=== PATIENT | female | born 1940 | race Caucasian/White ===

== ENCOUNTER 2018-01-18 11:03 | Outpatient (CLI) | payer MEDICARE, OTHER ==
[~2018-01-18] VITALS: Ht 160 cm; Wt 75.0 kg
--- NOTE | ~2018-01-18 | HEMODYNAMI ---
PATIENT:ROBIN MONTOYA MEDICAL RECORD: [id number] : 38 LOCATION:[facility] ADMISSION DATE: 01/18/18 Generatedon:01/18/201813:57 Patient name: ROBIN MONTOYA Patient #: [id number] SSN: : [id number] Date of study: 01/18/2018 Page: Of Hemodynamic Procedure Report Patient Data Patient Demographics Procedure consent was obtained First Name: ROBIN Gender: Female Last Name: JAN : 1940 Middle Initial: E Age: 77 year(s) Patient #: [id number] Race: Unknown Additional ID: [id number] Contact details Address: [address] [place] [address] State: [place] City: [place] Zip code: [address] Past Medical History Allergies Allergen Reaction Date Comments Reported Other allergy 01/18/2018 CARDIZEM, CIPRO, DARVOCET, HYDROCODONE, PCN, PERCOCET, TRAMADOL Admission Admission Data Admission Date: 01/18/2018 Admission Time: 11:03 Lab Results Lab Result Date: 01/18/2018 Lab Result Time: 0:00 Biochemistry Name Units Result Min Max BUN mg/dl 27 --(----)-* 7 18 Creatinine mg/dl 1.1 --(--*-)-- 0.6 1.3 CBC Name Units Result Min Max Hemoglobin g/dl 12.6 -*(----)-- 13.5 17.5 Procedure Procedure Types Cath Procedure Diagnostic Procedure LHC LHC w/Coronaries w/Grafts Procedure Description Procedure Date Procedure Date: 01/18/2018 Procedure Start Time: 13:31 Procedure End Time: 13:56 Procedure Staff Name Function Mendez Smith MD Performing Physician Kary Londono RT Monitor Colby Kwong RT Scrub Moses Werner RN Nurse Procedure Data Cath Procedure Fluoroscopy Diagnostic fluoroscopy Total fluoroscopy Time: 3.6 time: 3.6 min min Diagnostic fluoroscopy Total fluoroscopy dose: 755 dose: 755 mGy mGy Contrast Material Contrast Material Type Amount (ml) Isovue 370 88 Entry Location Entry Primary Successful Side Size Upsize Upsize Entry Closure Succes sful Closure Location (Fr) 1 (Fr) 2 (Fr) Remarks Device Remarks Femoral Right 5 Fr Exoseal artery Estimated blood loss: 5 ml Diagnostic catheters Device Type Used For End Catheter Placement MULTIPACK JL 4.0 5Fr Procedure catheter DIAGNOSTIC AR MOD 5Fr Procedure Catheter ([id number]) MULTIPACK Pigtail 5 Fr Procedure catheter Procedure Complications No complications Procedure Medications Medication Administration Route Dosage Lidocaine 2% added to field 20 Hemodynamics Rest Heart Rate: 54 (bpm) Pressure Samples Time Site Value (mmHg) Purpose Heart Use Rate(bpm) 13:46 LV 147/7,17 Snapshot 54 13:47 AO 122/56(79) Pullback 52 13:47 LV 173/5,17 Pullback 52 Gradients Valve Time Site 1 Site 2 Mean SEP/DFP Peak To Heart Use (mmHg) (sec/min) Peak Rate (mmHg) (bpm) Aortic 13:47 LV AO 17 16 51 52 173/5,17 122/56(79) Calculations Valve P-P Mean Valve Index Valve Source Name Gradient Area Flow (cm2) Aortic 51 17 51 17 Snapshots Pre Cath Intra NCS Post Cath Vital Signs Time Heart Resp SPO2 etCO2 NIBP Rhythm Pain Sedation Rate (ipm) (%) (mmHg) (mmHg) Status Level (bpm) 13:20:32 51 19 96 0 101/53(54) NSR 0 (11) 10(A) , No pain 13:25:54 51 19 94 0 107/48(83) NSR 0 (11) 10(A) , No pain 13:30:37 50 19 96 0 113/55(79) NSR 0 (11) 10(A) , No pain 13:35:23 53 18 97 0 117/53(89) NSR 0 (11) 10(A) , No pain 13:40:04 54 17 96 0 117/55(82) NSR 0 (11) 10(A) , No pain 13:44:51 51 17 97 0 111/52(90) NSR 0 (11) 10(A) , No pain 13:49:31 52 17 96 0 111/54(86) NSR 0 (11) 10(A) , No pain 13:54:16 55 18 97 0 124/55(94) NSR 0 (11) 10(A) , No pain Medications Time Medication Route Dose Verified Delivered Reason Notes Effective ness by by 13:25:57 Lidocaine added 20ml Mendez Mendez for local 2% to vial Luis Smith MD anesthetic field Procedure Log Time Note 13:03:36 Signed procedure consent form obtained from patient. 13:03:45 Colby Kwong RT(R) sent for patient. Start room use. 13:03:49 Plan of Care:Hemodynamics will remain stable., Cardiac rhythm will remain stable., Comfort level will be maintained., Respiratory function will remain adequate., Patient/ family verbilizes understanding of procedure., Procedure tolerated without complication., Recovers from procedure without complications.. 13:03:53 Time tracking: Regular hours (M-F 7:00 - 5:00) 13:04:21 H&P Date Dictated: 01/16/2018 Within 30 days and on chart., H&P Addendum completed by physician on day of procedure. (MUST COMPLETE FOR ALL OUTPATIENTS). 13:05:50 Lab Result : Creatinine 1.1 mg/dl 13:05:50 Lab Result : BUN 27 mg/dl 13:05:50 Lab Result : Hemoglobin 12.6 g/dl 13:07:09 Patient allergic to Other allergyCARDIZEM, CIPRO, DARVOCET, HYDROCODONE, PCN, PERCOCET, TRAMADOL 13:19:24 Patient received from Pre/Post Procedure Room to CCL 1 Alert and oriented. Tansferred to table in Supine position. 13:19:25 Warm blankets applied, and madhu hugger turned on for patient comfort. 13:19:25 Correct patient and procedure confirmed by team. 13:19:26 ECG and BP/O2 sat monitors applied to patient. 13:19:29 Vital chart was started 13:19:33 Rhythm: sinus bradycardia 13:19:34 Full Disclosure recording started 13:19:35 Pre-procedure instructions explained to patient. 13:19:35 Pre-op teaching completed and patient verbalized understanding. 13:19:37 Family in patients room. 13:19:39 Patient NPO since Midnight. 13:19:40 Is the patient allergic to Iodine/contrast media? No. 13:19:41 Is patient on blood thinner?Yes 13:19:44 ACC The patient was administered the following blood thiners within the last 24 hours: ACCPlavix 13:19:46 Patient diabetic? No. 13:19:50 Previous problem with sedation/anesthesia? No ? 13:19:50 Snore? Yes 13:19:51 Sleep apnea? Yes 13:19:53 Deviated septum? No 13:19:54 Opens mouth fully? Yes 13:19:56 Sticks out tongue? Yes 13:19:58 Airway obstruction? No ? 13:20:03 Dentures? No ? 13:20:05 Pre procedure: right dorsailis pedis pulse 1+ Palpable, but thready & weak; easily obliterated 13:20:09 Patient pain scale 0/10 ?. 13:20:15 IV patent on arrival in left wrist with 0.9% NaCl at [facility]. 13:20:18 Pt requests NO SEDATION. 13:20:18 Lab results completed and on chart. 13:20:21 Right groin area was prepped with chlora-prep and draped in sterile fashion 13:20:22 Alarms reviewed by R. N. 13:20:22 Sharps counted by scrub and verified by R.N. 13:20:23 --------ALL STOP TIME OUT------ 13:20:24 Final Timeout: patient, procedure, and site verified with staff and physician. All members of the team are in agreement. 13:20:25 Right groin site verified by team. 13:20:31 Physical assessment completed. ASA score P 1 - A normal healthy patient as per Mendez Smith MD. 13:20:33 Physical assessment completed. ASA score P 2 - A patient with mild systemic disease as per Mendez Smith MD. 13:20:36 Sedation plan: IV Moderate Sedation Medication:Versed, Fentanyl 13:21:10 Use device set Femoral Dx 13:21:11 ACIST Syringe (56317) opened to sterile field. 13:21:12 Bag Decanter (2001S) opened to sterile field. 13:21:14 ACIST Hand Control (81822) opened to sterile field. 13:21:14 ACIST Manifold (26222) opened to sterile field. 13:21:15 Tegaderm 4 x 4 (1626W) opened to sterile field. 13:21:16 Medline Cath Pack ([id number]) opened to sterile field. 13:21:17 DIAGNOSTIC WIRE .035 260cm J wire (845498) opened to sterile field. 13:21:18 DIAGNOSTIC Multipack 5Fr catheter set ([id number]) opened to sterile field. 13:21:19 SHEATH Prelude 5Fr 0.035 (RPM-8Y-65-035) opened to sterile field. 13:25:57 Lidocaine 2% 20ml vial added to field was administered by Mendez Smith MD; for local anesthetic; 13:31:12 Procedure started. 13:31:31 Local anesthetic to right femoral artery with Lidocaine 2% by Mendez Smith MD.INITIAL ACCESS ONLY 13:33:35 Zero performed for pressure channel P1 13:33:40 Zero performed for pressure channel P1 13:33:45 Zero performed for pressure channel P1 13:34:01 A 5 Fr sheath was inserted into the Right Femoral artery 13:35:23 A MULTIPACK JL 4.0 5Fr catheter was advanced over the wire and used for Procedure. 13:37:39 LCA angiography performed. 13:38:42 Catheter exchanged over wire. 13:39:47 A DIAGNOSTIC AR MOD 5Fr Catheter ([id number]) was advanced over the wire and used for Procedure. 13:40:22 RCA angiography performed. 13:45:11 SVG to Circ occluded. 13:45:25 SVG to RPDA occluded. 13:45:26 SVG to Diag occluded. 13:45:43 REYES ANGIO PERFORMED. ATRETIC 13:45:44 Catheter exchanged over wire. 13:46:04 A MULTIPACK Pigtail 5 Fr catheter was advanced over the wire and used for Procedure. 13:46:08 LV gram done using OLMEDO 13:46:10 Injector settings: Ml/sec: 10, Volume: 20, 13:46:28 LV hemodynamics recorded. 13:46:47 EF : 55 % 13:49:27 Catheter removed. 13:49:30 EXOSEAL 5Fr (EX500) opened to sterile field. 13:52:18 Sheath removed intact; hemostasis achieved with Exoseal to the Right Femoral artery. 13:52:27 Procedure ended.(Physican Out) 13:52:43 Fluoroscopy time 03.60 minutes. 13:52:47 Fluoroscopy dose: 755 mGy 13:52:47 Flurop Dose total: 755 13:52:50 Contrast amount:Isovue 370 88ml. 13:52:52 Sharps counted by scrub and verified by R.N. 13:52:57 Insertion/operative site no bleeding no hematoma. 13:53:01 Post-op/insertion site Right Femoral artery dressed using a 4 x 4 and Tegaderm. 13:53:06 Post right femoral artery:stable, soft, clean and dry 13:53:45 Post Procedure Pulses reassessed and unchanged 13:53:47 Post procedure: right dorsailis pedis pulse 1+ Palpable, but thready & weak; easily obliterated. 13:53:52 Post-procedure physical assessment completed. ASA score P 2 - A patient with mild systemic disease as per Mendez Smith MD. 13:53:57 Post procedure rhythm: unchanged. 13:54:01 Estimated blood loss: 5 ml 13:54:03 Post procedure instruction explained to patient.Patient verbalizes understanding. 13:54:03 Patient needs reinforcement of post procedure teaching. 13:56:25 Procedure and supply charges have been captured, reviewed, submitted and are correct. 13:56:27 Procedure Complication : No complications 13:56:30 Vital chart was stopped 13:56:31 See physician's report for complete and final results. 13:56:33 Report given to Pre/Post Procedure Room. 13:56:37 Patient transfered to Pre/Post Procedure Room with Bed. 13:56:38 Procedure ended. 13:56:38 Full Disclosure recording stopped 13:56:43 End room use (Document Last) Device Usage Item Name Manufacture Quantity Catalog Number Hospital Part Current M inimal Lot# / Charge Number Stock Stock Serial# Code ACIST Syringe Acist 1 68263 471021 [id number] [id number] 2 0 (21736) [employer] Bag Decanter Microtek 1 2001S 065468 92623 617390 5 (2001S) [employer] ACIST Hand Acist 1 30354 149648 826213 211412 5 Control (17534) [employer] ACIST Manifold Acist 1 52187 040806 795721 958663 5 (69530) [employer] Tegaderm 4 x 4 3M 1 1626W 673628 144154 581742 5 (1626W) Medline Cath Cardinal 1 [id number] 131508 83198 169646 5 [facility] ([id number]) DIAGNOSTIC WIRE [facility] 1 450372 154948 129196 041761 3 0 .035 260cm J wire (993112) DIAGNOSTIC Cardinal 1 QV5056 604060 17110 476983 3 0 Multipack 5Fr Health catheter set ([id number]) SHEATH Prelude Merit 1 [id number] 545302 636357 224669 5 5Fr 0.035 Medical ([id number]-9R-83-035) MULTIPACK JL Cardinal 1 [id number] 5 4.0 5Fr Health catheter DIAGNOSTIC AR Cardinal 1 [id number] 953276 732837 980892 1 5 MOD 5Fr Health Catheter ([id number]) MULTIPACK Cardinal 1 217606 5 Pigtail 5 Fr Health catheter EXOSEAL 5Fr Cardinal 1 EX500 688954 514120 071576 1 0 (EX500) Health Signature Audit [place] Stage Time Signature Unsigned Intra-Procedure 01/18/2018 Kary Londono 1:57:52 PM RT(R) Signatures Monitor : Kary Londono Signature : RT Date : Time : [address] [address]
[~2018-01-18 11:03] MED LIST: ATROVENT 0.06%15 ML NS; BAYER CHEWABLE81 MG PO; BUTALB-APAP-CA1 EACH PO; CATAFLAM50 MG PO; CELEXA20 MG PO; CO Q-1030 MG PO; COLESTID1 GM PO; COZAAR100 MG PO; FISH OIL 1,0001 CA1 PO; HYDROXYZINE HCL10 MG PO; LIPITOR20 MG PO; MORPHINE SULFAT15 M4 PO; NEXIUM40 MG; NITROMIST8.5 GM SL; PLAVIX75 MG PO; SOMA350 MG PO; TENORMIN50 MG PO; ZANTAC300 MG PO
[2018-01-18] MEDS ORDERED: BIOTIN5 MG PO (11:47)
[2018-01-18] MEDS ORDERED: ISOSORBIDE MONO60 M1 PO (11:49)
[2018-01-18] MEDS ORDERED: CYMBALTA30 MG PO (11:49)
[2018-01-18] MEDS ORDERED: MAG-OX 400 MG400 MG PO (11:50)
[2018-01-18] MEDS ORDERED: RANEXA500 MG PO (11:51)
[2018-01-18] MEDS ORDERED: VITAMIN B COMPL1 TAB PO (11:52)
[2018-01-18] MEDS ORDERED: VITAMIN D31000 UNIT PO (11:53)
[2018-01-18] MEDS ORDERED: ASCORBIC ACID500 MG PO (11:53)
[2018-01-18] MEDS ORDERED: VITAMIN E400 UNI2 PO (11:53)
[2018-01-18 12:04] VITALS: BP 118/53; Ht 160 cm; Wt 75.0 kg
[2018-01-18 12:10] LABS: EOSINOPHILS 3.7 % (0-7); HEMATOCRIT 37.2 % (36.0-48.0); HEMOGLOBIN 12.6 g/dL (12-16); IMMATURE GRANULOCYTES 0.2 % (0-5); LYMPHOCYTES 34.9 % (15-50); MCH 31.2 pg (26.0-34.0); MCHC 33.9 g/dL (31.0-37.0); MCV 92.1 fL (80.0-100.0); MEAN PLATELET VOLUME 9.3 fL (7.4-10.4); MONOCYTES 11.8 % (2-11); NEUTROPHILS 48.4 % (40-80); PLATELET COUNT 178 10x3/uL (130-400); RBC 4.04 10x6/uL (4.00-5.40); RDW 13.8 % (11.5-14.5); WBC 5.1 10x3/uL (4.8-10.8)
[2018-01-18 12:31] LABS: ANION GAP 10.3 mmol/L (8-16); CALCIUM 9.3 mg/dL (8.5-10.1); CARBON DIOXIDE 28.4 mmol/L (21.0-32.0); CREATININE - SERUM 1.1 mg/dL (0.6-1.3); POTASSIUM - SERUM 5.7 mmol/L (3.5-5.1)
== END 2018-01-18 17:30 | disposition home or self-care (01) ==
LOC: D.CATH 11:03
PROVIDERS: Internal Medicine Cardiovascular Disease
DX: I25.119 Atherosclerotic heart disease of native coronary artery with unspecified angina pectoris (principal); I25.719 Atherosclerosis of autologous vein coronary artery bypass graft(s) with unspecified angina pectoris; Z01.812 Encounter for preprocedural laboratory examination

== ENCOUNTER 2018-04-07 | Emergency (ER) | payer MEDICARE, OTHER ==
[~2018-04-07] VITALS: Ht 160 cm; Wt 74.7 kg
[~2018-04-07] MED LIST changes: +ASCORBIC ACID500 MG PO; +BIOTIN5 MG PO; +CYMBALTA30 MG PO; +ISOSORBIDE MONO60 M1 PO; +MAG-OX 400 MG400 MG PO; +RANEXA500 MG PO; +VITAMIN B COMPL1 TAB PO; +VITAMIN D31000 UNIT PO; +VITAMIN E400 UNI2 PO
[2018-04-07 00:03] VITALS: Ht 160 cm; Wt 74.7 kg
[2018-04-07 00:36] LABS: HEMATOCRIT 36.1 % (36.0-48.0); HEMOGLOBIN 12.6 g/dL (12-16); LYMPHOCYTES 33.7 % (15-50); MCH 31.6 pg (26.0-34.0); MCHC 34.9 g/dL (31.0-37.0); MCV 90.5 fL (80.0-100.0); MEAN PLATELET VOLUME 8.6 fL (7.4-10.4); NEUTROPHILS 55.2 % (40-80); PLATELET COUNT 202 10x3/uL (130-400); RBC 3.99 10x6/uL (4.00-5.40); RDW 14.9 % (11.5-14.5); WBC 6.4 10x3/uL (4.8-10.8)
[2018-04-07 00:57] LABS: ALBUMIN 3.6 g/dL (3.4-5.0); ALKALINE PHOSPHATASE 75 U/L (46-116); ALT (SGPT) 30 U/L (10-68); BILIRUBIN - TOTAL 0.73 mg/dL (0.2-1.3); CALC OSMOLALITY 285 mosm/kg (275-300); CALCIUM 9.1 mg/dL (8.5-10.1); CARBON DIOXIDE 25.3 mmol/L (21.0-32.0); CHLORIDE - SERUM 105 mmol/L (98-107); CREATINE KINASE 83 UL (21-215); CREATININE - SERUM 1.1 mg/dL (0.6-1.3); GLUCOSE 110 mg/dL (74-106); POTASSIUM - SERUM 4.4 mmol/L (3.5-5.1); PROTEIN - SERUM 6.8 g/dL (6.4-8.2); SODIUM 139 mmol/L (136-145); UREA NITROGEN 33 mg/dL (7-18); eGFR NON AFRICAN AMERICAN 51 mL/min (90-120)
[2018-04-07 00:58] LABS: TROPONIN-I < 0.017 ng/mL (0.000-0.060)
[2018-04-07 02:04] VITALS: BP 117/59
[2018-04-19] MEDS ORDERED: LIDODERM 5 %1 PATCH TRANSDERM (12:10)
[2018-04-19] MEDS ORDERED: ATROVENT 0.02%2.5 ML NASAL (12:10)
[2018-04-19] MEDS ORDERED: BETAPACE 80 MG80 MG PO (12:12)
[2018-04-19] MEDS ORDERED: BUTALB-APAP-CA1 EACH PO (12:12)
[2018-04-19] MEDS ORDERED: SOMA350 MG PO (12:13)
[2018-04-19] MEDS ORDERED: HYDROXYZINE HCL10 MG PO (12:13)
[2018-04-19] MEDS ORDERED: MORPHINE IMMEDI15 MG PO (12:14)
== END 2018-04-07 01:50 | disposition home or self-care (01) ==
LOC: D.ER
PROVIDERS: Family Medicine
DX: I48.91 Unspecified atrial fibrillation (principal); Z95.1 Presence of aortocoronary bypass graft

== ENCOUNTER → 2018-04-19 11:22 | Outpatient (CLI) | payer MEDICARE, OTHER ==
[~2018-04-19] VITALS: Ht 160 cm; Wt 73.2 kg
--- NOTE | ~2018-04-19 | HEMODYNAMI ---
PATIENT:ROBIN MONTOYA MEDICAL RECORD: [id number] : 38 LOCATION:[facility] ADMISSION DATE: 04/19/18 Generatedon:04/19/201814:23 Patient name: ROBIN MONTOYA Patient #: [id number] SSN: : 1940 Date of study: 04/19/2018 Page: Of Hemodynamic Procedure Report Patient Data Patient Demographics Procedure consent was obtained First Name: ROBIN Gender: Female Last Name: JAN : 1940 Middle Initial: E Age: 77 year(s) Patient #: [id number] Race: Unknown Additional ID: [id number] Contact details [address]: [address] [place] [address] State: [place] City: [place] Zip code: [address] Past Medical History Allergies Allergen Reaction Date Comments Reported Other allergy 01/18/2018 CARDIZEM, CIPRO, DARVOCET, HYDROCODONE, PCN, PERCOCET, TRAMADOL Other allergy 04/19/2018 Cardizem, Cipro, Hydrocodone, Percocet, PCN, Tramadol. Admission Admission Data Admission Date: 04/19/2018 Admission Time: 11:22 Height (in.): 64 BSA: 1.78 (m2) Height (cm.): 162.56 BMI: 27.46 (kg/m2) Weight (lbs.): 160 Weight (kg.): 72.57 Lab Results Lab Result Date: 04/19/2018 Lab Result Time: 11:15 Biochemistry Name Units Result Min Max BUN mg/dl 15 --(--*-)-- 7 18 Creatinine mg/dl 0.8 --(-*--)-- 0.6 1.3 CBC Name Units Result Min Max Hematocrit % 40.6 -*(----)-- 42 54 Hemoglobin g/dl 14.2 --(*---)-- 13.5 17.5 Procedure Procedure Types Cath Procedure Diagnostic Procedure Sedation Charges Moderate Sedation up to 30 minutes PCI Procedure Coronary Stent Coronary Stent Initial Procedure Description Procedure Date Procedure Date: 04/19/2018 Procedure Start Time: 13:47 Procedure End Time: 14:15 Procedure Staff Name Function Mendez Smith MD Performing Physician Susanne Barrera RT Monitor Stuart Dougherty RN Nurse Nesha Garcia RT Scrub Procedure Data Cath Procedure Fluoroscopy Diagnostic fluoroscopy Total fluoroscopy Time: 7.3 time: 7.3 min min Diagnostic fluoroscopy Total fluoroscopy dose: 793 dose: 793 mGy mGy Contrast Material Contrast Material Type Amount (ml) Isovue 300 59 Entry Location Entry Primary Successful Side Size Upsize Upsize Entry Closure Succes sful Closure Location (Fr) 1 (Fr) 2 (Fr) Remarks Device Remarks Femoral Right 5 Fr Exoseal vein Femoral Right 6 Fr Exoseal artery Short Estimated blood loss: 10 ml Procedure Complications No complications Procedure Medications Medication Administration Route Dosage Heparin Flush Bag added to field 2 bags (1000units/500ml NS) 0.9% NaCl I.V. 100 ml/hr Heparin Bolus I.V. 7000 units Hemodynamics Rest BSA: 1.78 (m2) HGB: 14.2 (g/dl) O2 Consumption: Estimated: 151.11 (ml/min) O2 Co nsumption indexed: Estimated:84.89 (ml/min/m) Heart Rate: 56 (bpm) Snapshots Pre Cath Intra NCS Post Cath Vital Signs Time Heart Resp SPO2 etCO2 NIBP (mmHg) Rhythm Pain Sedation Rate (ipm) (%) (mmHg) Status Level (bpm) 13:18:04 54 17 0 121/51(100) NSR 0 (11) 10(A) , No pain 13:22:26 54 16 98 0 100/40(67) NSR 0 (11) 10(A) , No pain 13:26:36 54 17 98 0 108/49(73) NSR 0 (11) 10(A) , No pain 13:30:50 54 17 98 0 97/47(58) NSR 0 (11) 10(A) , No pain 13:35:00 54 16 100 30.7 109/49(69) NSR 0 (11) 10(A) , No pain 13:39:08 53 16 100 38.2 107/56(75) NSR 0 (11) 10(A) , No pain 13:43:17 55 16 100 29.2 105/61(77) NSR 0 (11) 10(A) , No pain 13:47:27 55 16 100 29.9 114/56(98) NSR 0 (11) 10(A) , No pain 13:52:28 55 17 100 29.2 108/52(89) NSR 0 (11) 10(A) , No pain 13:57:29 54 16 100 28.4 112/52(74) NSR 0 (11) 10(A) , No pain 14:01:46 55 17 100 29.9 100/49(83) NSR 0 (11) 10(A) , No pain 14:05:58 56 16 100 31.4 113/44(89) NSR 0 (11) 10(A) , No pain 14:10:12 56 16 100 30.7 110/49(93) NSR 0 (11) 10(A) , No pain 14:14:25 58 16 100 30.7 117/49(90) NSR 0 (11) 10(A) , No pain Medications Time Medication Route Dose Verified Delivered Reason Notes Effectiveness by by 13:28:20 Heparin Flush added 2 Mendez Stuart used for Bag to bags Luis Dougherty RN procedure (1000units/500ml field NS) 13:28:30 0.9% NaCl I.V. 100 Mendez Stuart Per physician ml/hr Luis Dougherty RN 13:57:30 Heparin Bolus I.V. 7000 Mendez Stuart for units Luis Dougherty RN anticoagulation Procedure Log Time Note 12:49:26 Patient Height : 64 inches 12:49:32 Patient Weight : 160 lbs 12:50:09 Susanne MCCARTNEY(R) sent for patient. Start room use. 12:52:38 Diagnostic Cath status Elective 13:08:11 Time tracking: Regular hours (M-F 7:00 - 5:00) 13:08:17 Plan of Care:Hemodynamics will remain stable., Cardiac rhythm will remain stable., Comfort level will be maintained., Respiratory function will remain adequate., Patient/ family verbilizes understanding of procedure., Procedure tolerated without complication., Recovers from procedure without complications.. 13:08:34 Patient received from Pre/Post Procedure Room to [facility] 2 Alert and oriented. Tansferred to table in Supine position. 13:08:35 Warm blankets applied, and madhu hugger turned on for patient comfort. 13:08:36 Correct patient and procedure confirmed by team. 13:08:38 Signed procedure consent form obtained from patient. 13:08:50 H&P Date Dictated: 04/11/2018 Within 30 days and on chart., H&P Addendum completed by physician on day of procedure. (MUST COMPLETE FOR ALL OUTPATIENTS). 13:08:51 Pre-procedure instructions explained to patient. 13:08:53 Family in waiting room. 13:08:55 Patient NPO since Midnight. 13:11:53 Patient allergic to Other allergyCardizem, Cipro, Hydrocodone, Percocet, PCN, Tramadol. 13:11:57 Is the patient allergic to Iodine/contrast media? No. 13:11:58 Is patient on blood thinner?Yes 13:12:00 ACC The patient was administered the following blood thiners within the last 24 hours: ACCPlavix 13:12:02 Patient diabetic? No. 13:12:06 Previous problem with sedation/anesthesia? No ? 13:12:07 Snore? Yes 13:12:08 Sleep apnea? Yes 13:12:09 Deviated septum? No 13:12:10 Opens mouth fully? Yes 13:12:10 Sticks out tongue? Yes 13:12:12 Airway obstruction? No ? 13:12:14 Dentures? No ? 13:12:22 Pre procedure: right dorsailis pedis pulse 2+ Normal; easily identifiable; not easily obliterated 13:12:23 Patient pain scale 0/10 ?. 13:12:27 IV patent on arrival in left forearm with 0.9% NaCl at KVO. 13:14:39 Lab Result : Creatinine 0.8 mg/dl 13:14:39 Lab Result : BUN 15 mg/dl 13:14:40 Lab Result : Hemoglobin 14.2 g/dl 13:14:40 Lab Result : Hematocrit 40.6 % 13:14:42 Lab results completed and on chart. 13:14:44 Right groin area was prepped with chlora-prep and draped in sterile fashion 13:14:44 Alarms reviewed by R. N. 13:14:45 Sharps counted by scrub and verified by R.N. 13:14:51 ACIST Syringe (29266) opened to sterile field. 13:14:52 Bag Decanter (2002S) opened to sterile field. 13:14:52 Medline Cath Pack ([id number]) opened to sterile field. 13:14:53 ACIST Hand Control (41707) opened to sterile field. 13:14:53 ACIST Manifold (90112) opened to sterile field. 13:14:54 Tegaderm 4 x 4 (1626W) opened to sterile field. 13:14:55 DIAGNOSTIC WIRE .035 260cm J wire (433310) opened to sterile field. 13:15:15 TUBING High Pressure Extension Tubing (Luis) ([id number]) opened to sterile field. 13:15:16 INFLATOR Merit BasixCompak (VN5549) opened to sterile field. 13:15:27 BMW 300cm [place] 2 J wire ([id number]) opened to sterile field. 13:16:46 ECG and BP/O2 sat monitors applied to patient. 13:16:47 Vital chart was started 13:16:53 Baseline sample Acquired. 13:16:57 Rhythm: sinus rhythm 13:16:59 Full Disclosure recording started 13:28:20 Heparin Flush Bag (1000units/500ml NS) 2 bags added to field was administered by Stuart Dougherty RN; used for procedure; 13:28:30 0.9% NaCl 100 ml/hr I.V. was administered by Stuart Dougherty RN; Per physician; 13:43:25 Zero performed for pressure channel P1 13:43:40 Physician paged 13:45:45 Physician arrived 13:45:45 --------ALL STOP TIME OUT------ 13:45:46 Final Timeout: patient, procedure, and site verified with staff and physician. All members of the team are in agreement. 13:45:48 Right groin site verified by team. 13:45:52 Physical assessment completed. ASA score P 2 - A patient with mild systemic disease as per Mendez Smith MD. 13:46:21 Sedation plan: None Medication:Lidocaine 13:46:27 Use device set Femoral Dx 13:46:31 Procedure started. 13:47:40 Local anesthetic to right femoral artery with Lidocaine 2% by Mendez Smith MD.INITIAL ACCESS ONLY 13:48:57 GUIDE 6FR AR 1.0 catheter ([id number]) opened to sterile field. 13:52:05 SHEATH Prelude 5Fr 0.035 (NSV-5W-83-035) opened to sterile field. 13:52:32 A 5 Fr sheath was inserted into the Right Femoral vein 13:54:15 A 6 Fr Short sheath was inserted into the Right Femoral artery 13:55:48 6 Fr AR1 guide catheter was inserted over the wire 13:57:30 Heparin Bolus 7000 units I.V. was administered by Stuart Dougherty RN; for anticoagulation; 13:59:31 BMW wire advanced. 13:59:59 Wire advanced across lesion. 14:01:23 Inflate balloon Inflation number: 1 A EMERGE OTW 2.5 x 20 balloon ([id number]) was prepped and advanced across the Mid RCA, then inflated to 10 LIONEL for 0:18 (min:sec). 14:01:58 Inflation number: 2 The EMERGE OTW 2.5 x 20 balloon ([id number]) was reinflated across the Mid RCA, to 12 LIONEL for 0:30 (min:sec). 14:03:24 Inflation number: 3 The EMERGE OTW 2.5 x 20 balloon ([id number]) was reinflated across the Mid RCA, to 14 LIONEL for 0:32 (min:sec). 14:06:49 Balloon removed over the wire. 14:09:32 Place stent Inflation Number: 1 A INTEGRITY OTW 2.75 X 18 stent ([id number]) was prepped and advanced across the Mid RCA1. The stent was deployed at 14 LIONEL for 0:21 (min:sec). 14:10:25 Inflation number: 2 The stent balloon was then re-inflated across the Mid RCA1 to 16 LIONEL for 0:40 (min:sec). 14:11:25 Wire removed. 14:11:26 Guide catheter removed. 14:11:51 Sheath removed intact; hemostasis achieved with Exoseal to the Right Femoral artery. 14:12:14 EXOSEAL 5Fr (EX500) opened to sterile field. 14:12:27 Sheath removed intact; hemostasis achieved with Exoseal to the Right Femoral vein. 14:12:30 Procedure ended.(Physican Out) 14:12:43 Fluoroscopy time 07.30 minutes. 14:12:49 Fluoroscopy dose: 793 mGy 14:12:49 Flurop Dose total: 793 14:12:54 Contrast amount:Isovue 300 59ml. 14:12:56 Sharps counted by scrub and verified by R.N. 14:12:59 Insertion/operative site no bleeding no hematoma. 14:13:04 Post-op/insertion site Right Femoral artery dressed using a 4 x 4 and Tegaderm. 14:13:08 Post-op/insertion site Right Femoral vein dressed using a 4 x 4 and Tegaderm. 14:13:12 Post Procedure Pulses reassessed and unchanged 14:13:17 Post-procedure physical assessment completed. ASA score P 2 - A patient with mild systemic disease as per Mendez Smith MD. 14:13:21 Post procedure rhythm: sinus rhythm 14:13:24 Estimated blood loss: 10 ml 14:13:26 Post procedure instruction explained to patient.Patient verbalizes understanding. 14:13:46 Procedure type changed to Cath procedure, Diagnostic procedure, Sedation Charges, Moderate Sedation up to 30 minutes, PCI procedure, Coronary Stent, Coronary Stent Initial 14:13:48 Procedure and supply charges have been captured, reviewed, submitted and are correct. 14:14:59 Procedure Complication : No complications 14:15:04 Vital chart was stopped 14:15:11 Report given to Pre/Post Procedure Room. 14:15:20 Patient transfered to Pre/Post Procedure Room with Stretcher. 14:15:22 Procedure ended. 14:15:22 Full Disclosure recording stopped 14:15:27 End room use (Document Last) Intervention Summary Intervention Notes Time ActionType Lesion and Equipment Action# Pressure Duration Attributes Used 14:01:23 Inflate Mid RCA EMERGE OTW 1 10 00:18 balloon 2.5 x 20 balloon ([id number]) 14:01:58 Reinflate Mid RCA EMERGE OTW 2 12 00:30 balloon 2.5 x 20 balloon ([id number]) 14:03:24 Reinflate Mid RCA EMERGE OTW 3 14 00:32 balloon 2.5 x 20 balloon ([id number]) 14:09:32 Place stent Mid RCA1 INTEGRITY 1 14 00:21 OTW 2.75 X 18 stent ([id number]) 14:10:25 Reinflate Mid RCA1 INTEGRITY 2 16 00:40 stent OTW 2.75 X balloon 18 stent ([id number]) Device Usage Item Name Manufacture Quantity Catalog Number Hospital Part Current Minimal Lot# / Charge Number Stock Stock Serial# Code ACIST Syringe Acist 1 07230 390917 142643 473829 20 (96220) [employer] Bag Decanter Microtek 1 2001S 877573 68718 644286 5 (2001S) Medical Inc. Medline Cath Cardinal 1 [id number] 133202 78210 794268 5 Pack Health ([id number]) ACIST Hand Acist 1 50945 457282 404067 398838 5 Control (34867) Medical [employer] Inc ACIST Manifold Acist 1 37964 427265 447820 288767 5 (02205) Medical Systems Inc Tegaderm 4 x 4 3M 1 1626W 962978 819639 729005 5 (1626W) DIAGNOSTIC WIRE [facility] [place] 1 746673 282753 755208 937840 30 .035 260cm J wire (463183) TUBING High Merit 1 [id number] 259478 58908 898432 10 Pressure Medical Extension Tubing (Smith) ([id number]) INFLATOR Merit Merit 1 TU6254 223031 139179 045881 15 BasixCompak Medical (GS6654) BMW 300cm Aceves 1 [id number] 845881 121114 294869 5 [place] 2 J Vascular wire ([id number]) GUIDE 6FR AR Medtronic 1 [id number] 986305 07917 779614 1 1.0 catheter ([id number]) SHEATH Prelude Merit 1 LWC-8S-75-035 212255 916803 716678 5 5Fr 0.035 Medical (PEN-0I-11-035) EMERGE OTW 2.5 [place] 1 [id number] 455928 500071 653076 5 [id number] x 20 balloon Scientific ([id number]) INTEGRITY OTW Medtronic 1 [id number] 146408 722961 6 [id number] 2.75 X 18 stent ([id number]) EXOSEAL 5Fr Cardinal 1 EX500 030003 763415 115713 10 (EX500) Health Signature Audit [place]ella Stage Time Signature Unsigned Intra-Procedure 04/19/2018 Susanne Barrera 2:23:25 PM RT(R) Signatures Monitor : Susanne Barrera Signature : RT Date : Time : [address] [place] [address]
[~2018-04-19 11:22] MED LIST changes: +ATROVENT 0.02%2.5 ML NASAL; +BETAPACE 80 MG80 MG PO; +LIDODERM 5 %1 PATCH TRANSDERM; +MORPHINE IMMEDI15 MG PO
[2018-04-19 12:01] VITALS: BP 116/51; Ht 160 cm; Wt 73.2 kg
[2018-04-19 12:09] LABS: EOSINOPHILS 5.1 % (0-7); HEMATOCRIT 36.5 % (36.0-48.0); HEMOGLOBIN 12.3 g/dL (12-16); IMMATURE GRANULOCYTES 0.7 % (0-5); LYMPHOCYTES 27.8 % (15-50); MCH 31.7 pg (26.0-34.0); MCHC 33.7 g/dL (31.0-37.0); MCV 94.1 fL (80.0-100.0); MEAN PLATELET VOLUME 9.3 fL (7.4-10.4); MONOCYTES 11.8 % (2-11); NEUTROPHILS 53.6 % (40-80); PLATELET COUNT 224 10x3/uL (130-400); RBC 3.88 10x6/uL (4.00-5.40); RDW 14.4 % (11.5-14.5)
[2018-04-19 12:23] LABS: ANION GAP 12.5 mmol/L (8-16); CALCIUM 9.1 mg/dL (8.5-10.1); CREATININE - SERUM 1.1 mg/dL (0.6-1.3); POTASSIUM - SERUM 4.5 mmol/L (3.5-5.1)
== END | disposition home or self-care (01) ==
LOC: D.CATH 11:22
PROVIDERS: Internal Medicine Cardiovascular Disease
DX: I25.119 Atherosclerotic heart disease of native coronary artery with unspecified angina pectoris (principal); T82.855A Stenosis of coronary artery stent, initial encounter; Z01.812 Encounter for preprocedural laboratory examination

== ENCOUNTER → 2020-02-07 08:29 | Outpatient (CLI) | payer MEDICARE, OTHER ==
[2018-04-19 12:01] VITALS: BMI 28.5
== END | disposition home or self-care (01) ==
LOC: D.US 08:29
PROVIDERS: ATTEND Internal Medicine Cardiovascular Disease
DX: I70.213 Atherosclerosis of native arteries of extremities with intermittent claudication, bilateral legs (principal)

== ENCOUNTER → 2020-04-15 09:07 | Outpatient (CLI) | payer MEDICARE, OTHER ==
[2018-04-19 12:01] VITALS: BMI 28.5
== END | disposition home or self-care (01) ==
LOC: D.HCCARDIO 09:07
PROVIDERS: ATTEND Internal Medicine Cardiovascular Disease
DX: I25.10 Atherosclerotic heart disease of native coronary artery without angina pectoris (principal)

== ENCOUNTER 2020-05-06 06:49 | Day surgery (SDC) | payer MEDICARE, OTHER ==
[~2020-05-06] VITALS: Ht 160 cm; Wt 70.5 kg
--- NOTE | ~2020-05-06 | HEMODYNAMI ---
PATIENT:ROBIN MONTOYA MEDICAL RECORD: [id number] : 38 LOCATION:D.CAT ADMISSION DATE: 05/06/20 Generatedon:05/06/202012:57 Patient name: ROBIN MONTOYA Patient #: [id number] : 1940 Date of study: 05/06/2020 Page: Of Hemodynamic Procedure Report Patient Data Patient Demographics Procedure consent was obtained First Name: ROBIN Gender: Female Last Name: JAN : 1940 Middle Initial: E Age: 79 year(s) Patient #: [id number] Race: SSN: [id number] Additional ID: [id number] Contact details Address: [address] [place] [address] State: [place] City: [place] Zip code: [address] Past Medical History Allergies Allergen Reaction Date Comments Reported Other allergy 01/18/2018 CARDIZEM, CIPRO, DARVOCET, HYDROCODONE, PCN, PERCOCET, TRAMADOL Other allergy 04/19/2018 Cardizem, Cipro, Hydrocodone, Percocet, PCN, Tramadol. Other allergy 05/06/2020 CARDIZEM, PERCOCET, CIRPRO, TRAMADOL, PCN, DARVOCET, HYDROCODONE Admission Admission Data Admission Date: 05/06/2020 Admission Time: 6:49 Arrival Date: 05/06/2020 Arrival Time: 8:30 Admit Source: Other Insurance Payor: Medicare [facility] #: [id number] Height (in.): 62.99 BSA: 1.73 (m2) Height (cm.): 160 BMI: 27.34 (kg/m2) Weight (lbs.): 154.32 Weight (kg.): 70 Lab Results Lab Result Date: 05/06/2020 Lab Result Time: 0:00 Biochemistry Name Units Result Min Max BUN mg/dl 26 --(----)-* 7 18 Creatinine mg/dl 1 --(--*-)-- 0.6 1.3 eGFR ml/min 56 *-(----)-- 90 120 NONAFRICAN CBC Name Units Result Min Max Hemoglobin g/dl 13.5 --(*---)-- 13.5 17.5 Procedure Procedure Types Cath Procedure Diagnostic Procedure LHC Coronaries w/Grafts Aortic Root Angiography Sedation Charges Moderate Sedation up to 30 minutes PCI Procedure PTCA PTCA Initial Hemochron ACT Test Procedure Description Procedure Date Procedure Date: 05/06/2020 Procedure Start Time: 9:02 Procedure End Time: 9:27 Procedure Staff Name Function Nesha Garcia RT Monitor Mendez Smith MD Performing Physician Namrata Pina RT Scrub Arminda Raygoza RN Nurse Indication Angina Procedure Data Cath Procedure Fluoroscopy Diagnostic fluoroscopy Total fluoroscopy Time: 5.3 time: 5.3 min min Diagnostic fluoroscopy Total fluoroscopy dose: 992 dose: 992 mGy mGy Contrast Material Contrast Material Type Amount (ml) Isovue 300 97 Entry Location Entry Primary Successful Side Size Upsize Upsize Entry Closure Succes sful Closure Location (Fr) 1 (Fr) 2 (Fr) Remarks Device Remarks Femoral Right 5 Fr 6 Fr Exoseal artery Short Estimated blood loss: 5 ml Diagnostic catheters Device Type Used For End Catheter Placement MULTIPACK JL 4.0 5Fr Left Coronary catheter Angiography DIAGNOSTIC AR MOD 5Fr Multi-vessel Catheter ([id number]) Angiography MULTIPACK Pigtail 5 Fr LV Angiography catheter Procedure Complications No complications Procedure Medications Medication Administration Route Dosage Oxygen etCO2 Nasal cannula 2 l/min Heparin Flush Bag added to field 2 bags (1000units/500ml NS) Lidocaine 2% added to field 20 0.9% NaCl I.V. 100 ml/hr Fentanyl I.V. 50 mcg Versed I.V. 1 mg Fentanyl I.V. 50 mcg Versed I.V. 1 mg Versed I.V. 1 mg Heparin Bolus I.V. 7000 units Versed I.V. 0.5 mg Plavix P.O. 600 mg Hemodynamics Rest HGB: 13.5 (g/dl) Heart Rate: 68 (bpm) Snapshots Pre Cath Intra NCS Post Cath Vital Signs Time Heart Resp SPO2 etCO2 NIBP Rhythm Pain Sedation Rate (ipm) (%) (mmHg) (mmHg) Status Level (bpm) 8:35:54 68 17 100 35.4 127/65(94) NSR 0 (11) 10(A) , No pain 8:39:40 68 18 98 24.8 113/70(88) NSR 0 (11) 10(A) , No pain 8:44:34 67 14 93 36.9 112/55(75) NSR 0 (11) 10(A) , No pain 8:48:54 67 12 98 33.1 111/52(75) NSR 0 (11) 10(A) , No pain 8:53:43 67 12 99 31.6 109/57(82) NSR 0 (11) 9(A) , No pain 8:57:35 63 13 99 32.4 114/52(84) NSR 0 (11) 9(A) , No pain 9:02:32 67 10 99 32.4 115/52(77) NSR 0 (11) 9(A) , No pain 9:06:48 67 11 98 33.9 111/57(79) NSR 0 (11) 9(A) , No pain 9:10:39 66 11 99 35.4 117/54(80) NSR 0 (11) 9(A) , No pain 9:14:59 66 11 99 36.2 118/51(81) NSR 0 (11) 9(A) , No pain 9:19:19 65 14 100 35.4 112/51(95) NSR 0 (11) 9(A) , No pain 9:24:20 64 14 100 34.6 111/48(81) NSR 0 (11) 9(A) , No pain Medications Time Medication Route Dose Verified Delivered Reason Notes Effectiveness by by 8:40:00 Oxygen etCO2 2 Arminda Arminda for low 02 sats Nasal l/min Idalmis Raygoza, cannula RN RN 8:40:09 Heparin Flush added 2 Arminda Arminda used for Bag to bags Idalmis Raygoza procedure (1000units/500ml field RN RN NS) 8:40:20 Lidocaine 2% added 20ml Arminda Mendez for local to vial Luis Raygoza MD anesthetic RN 8:40:43 0.9% NaCl I.V. 100 Arminda Mendez Per physician ml/hr Luis Raygoza MD RN 8:51:08 Fentanyl I.V. 50 Arminda Arminda for sedation mcg Idalmis Raygoza RN RN 8:51:14 Versed I.V. 1 mg Arminda Arminda for sedation Idalmis Raygoza RN RN 9:00:12 Fentanyl I.V. 50 Arminda Arminda for sedation mcg Idalmis Raygoza RN RN 9:00:15 Versed I.V. 1 mg Arminda Arminda for sedation Idalmis Raygoza RN RN 9:09:48 Versed I.V. 1 mg Arminda Arminda for sedation Idalmis Raygoza RN RN 9:17:33 Heparin Bolus I.V. 7000 Arminda Arminda for verifi ed units Idalmis Raygoza anticoagulation w RN ROSLYN Smith 9:21:14 Versed I.V. 0.5 Arminda Arminda for sedation mg Idalmis Raygoza RN RN 9:26:33 Plavix P.O. 600 Arminda Arminda for mg Idalmis Raygoza, antiplatelet RN RN therapy Procedure Log Time Note 7:49:06 Diagnostic Cath Status : Elective 7:49:54 Indication : Angina 7:50:21 Informed consent obtained and on chart 7:55:03 Procedure Status Elective Heart Cath (OP). 7:55:06 Namrata Pina RT(R) sent for patient. Start room use. 7:55:07 Time tracking: Regular hours (M-F 7:00 - 5:00) 7:55:11 Plan of Care:Hemodynamics will remain stable., Cardiac rhythm will remain stable., Comfort level will be maintained., Respiratory function will remain adequate., Patient/ family verbilizes understanding of procedure., Procedure tolerated without complication., Recovers from procedure without complications.. 7:58:16 Arrival Date: 05/06/2020 8:30:00 AM 7:58:54 Admit Source: Other 7:59:00 Insurance Payor : Medicare 7:59:03 Patient Height : 62.99 inches 7:59:06 Patient Weight : 154.32 lbs 8:21:08 Patient received from Pre/Post Procedure Room to CCL 2 Alert and oriented. Tansferred to table in Supine position. 8:21:09 Correct patient and procedure confirmed by team. 8:21:09 Warm blankets applied, and madhu hugger turned on for patient comfort. 8:21:10 ECG and BP/O2 sat monitors applied to patient. 8:24:14 Pre-procedure instructions explained to patient. 8:24:15 Pre-op teaching completed and patient verbalized understanding. 8:24:16 Family in patients room. 8:24:17 Patient NPO since Midnight. 8:25:02 Patient allergic to Other allergyCARDIZEM, PERCOCET, CIRPRO, TRAMADOL, PCN, DARVOCET, HYDROCODONE 8:25:04 Full Disclosure recording started 8:25:12 Is the patient allergic to Iodine/contrast media? No. 8:25:15 Is patient on blood thinner?Yes 8:25:31 ELIQUIS HELD SINCE TUESDAY 8:25:36 Patient diabetic? No. 8:25:39 Patient not . Patient is over age 55. 8:25:40 Previous problem with sedation/anesthesia? No ? 8:25:42 Snore? Yes 8:25:44 Sleep apnea? Yes 8:25:45 Opens mouth fully? Yes 8:25:45 Deviated septum? No 8:25:46 Sticks out tongue? Yes 8:25:48 Airway obstruction? No ? 8:25:49 Dentures? No ? 8:25:52 Pre procedure: right dorsailis pedis pulse 2+ Normal; easily identifiable; not easily obliterated 8:25:57 Patient pain scale 0/10 ?. 8:26:00 IV patent on arrival in left hand with 0.9% NaCl at [facility]. 8:29:17 Vital chart was started 8:29:21 Rhythm: sinus rhythm 8:30:58 Lab results completed and on chart. 8:31:02 Right groin area was prepped with chlora-prep and draped in sterile fashion 8:31:03 Sharps counted by scrub and verified by R.N. 8:31:03 Alarms reviewed by R. N. 8:40:00 Oxygen 2 l/min etCO2 Nasal cannula was administered by Arminda Raygoza RN; for low 02 sats; Verbal order read back and verified. 8:40:09 Heparin Flush Bag (1000units/500ml NS) 2 bags added to field was administered by Arminda Raygoza RN; used for procedure; Verbal order read back and verified. 8:40:16 Lab Result : eGFR NONAFRICAN 56 ml/min 8:40:16 Lab Result : Hemoglobin 13.5 g/dl 8:40:16 Lab Result : BUN 26 mg/dl 8:40:16 Lab Result : Creatinine 1 mg/dl 8:40:20 Lidocaine 2% 20ml vial added to field was administered by Mendez Smith MD; for local anesthetic; Verbal order read back and verified. 8:40:34 3a) 45-59 Moderately reduced kidney function. 8:40:43 0.9% NaCl 100 ml/hr I.V. was administered by Mendez Smith MD; Per physician; Verbal order read back and verified. 8:48:29 --------ALL STOP TIME OUT------ 8:48:29 Physician arrived 8:48:30 Final Timeout: patient, procedure, and site verified with staff and physician. All members of the team are in agreement. 8:48:31 Right groin site verified by team. 8:48:34 Fire Safety Assessment: A--An alcohol-based skin anteseptic being used preoperatively., C--Open oxygen or nitrous oxide is being used., D--An ESU, laser, or fiber-optic light is being used. 8:48:37 Physical assessment completed. ASA score P 2 - A patient with mild systemic disease as per Mendez Smith MD. 8:48:41 Maximum allowable contrast dose (3.7 X eGFR X 0.75)155 ml. 8:48:44 Sedation plan: IV Moderate Sedation Medication:Versed, Fentanyl 8:48:50 Zero performed for pressure channel P1 8:51:08 Fentanyl 50 mcg I.V. was administered by Arminda Raygoza RN; for sedation; Verbal order read back and verified. 8:51:14 Versed 1 mg I.V. was administered by Arminda Raygoza RN; for sedation; Verbal order read back and verified. 8:59:06 Use device set Femoral Dx 8:59:07 Bag Decanter () opened to sterile field. 8:59:07 ACIST Syringe (50357) opened to sterile field. 8:59:08 Medline Cath Pack ([id number]) opened to sterile field. 8:59:09 ACIST Manifold (03753) opened to sterile field. 8:59:09 ACIST Hand Control (44907) opened to sterile field. 8:59:10 Tegaderm 4 x 4 (1626W) opened to sterile field. 8:59:10 DIAGNOSTIC Multipack 5Fr catheter set (OL0630) opened to sterile field. 8:59:11 EMERALD Guide Wire (502-593) opened to sterile field. 8:59:11 SHEATH 5FR Felton (WBZ159) opened to sterile field. 9:00:12 Fentanyl 50 mcg I.V. was administered by Arminda Raygoza RN; for sedation; Verbal order read back and verified. 9:00:15 Versed 1 mg I.V. was administered by Arminda Raygoza RN; for sedation; Verbal order read back and verified. 9:02:29 Procedure started. 9:02:31 Local anesthetic to right femoral artery with Lidocaine 2% by Mendez Smith MD.INITIAL ACCESS ONLY 9:02:40 A 5 Fr sheath was inserted into the Right Femoral artery 9:02:51 A MULTIPACK JL 4.0 5Fr catheter was advanced over the wire and used for Left Coronary Angiography. 9:03:09 Baseline sample Acquired. 9:05:29 LCA angiography performed. 9:05:31 Injector settings: Ml/sec: 3, Volume: 6, 9:06:04 Catheter removed. 9:07:15 A DIAGNOSTIC AR MOD 5Fr Catheter ([id number]) was advanced over the wire and used for Multi-vessel Angiography. 9:07:21 RCA angiography performed. 9:07:24 Injector settings: Ml/sec: 3, Volume: 6, 9:08:09 SVG to RCA occluded. 9:08:28 SVG to Circ occluded. 9:08:45 SVG to OM occluded. 9:08:52 Catheter removed. 9:09:00 A MULTIPACK Pigtail 5 Fr catheter was advanced over the wire and used for LV Angiography. 9:09:48 Versed 1 mg I.V. was administered by Arminda Raygoza RN; for sedation; Verbal order read back and verified. 9:10:39 Aortic Root visualized 9:11:32 Catheter removed. 9:12:02 SHEATH 6FR Felton (PPL349) opened to sterile field. 9:12:03 INFLATOR Merit BasixCompak (ZH0677) opened to sterile field. 9:12:41 GUIDE 6FR JL 4.0 catheter ([id number]) opened to sterile field. 9:13:03 TUBING High Pressure Extension Tubing (Luis) (TC8816S) opened to sterile field. 9:15:56 JL 4 DAMAGED IN PACKAGE 9:16:04 GUIDE 6FR JR 4.0 catheter ([id number]) opened to sterile field. 9:16:24 Asahi Minamo 190cm wire opened to sterile field. 9:17:11 Sheath upsized to a 6 Fr Short. 9:17:17 ACC Pre-intervention CORDELIA Flow is 3. 9:17:27 Pre PCI Site: [place] mRCA has 90% stenosis. 9:17:32 6 Fr JR 4 guide catheter was inserted over the wire 9:17:33 Heparin Bolus 7000 units I.V. was administered by Arminda Raygoza RN; for anticoagulation; verified w Dr. Smith Verbal order read back and verified. 9:17:37 MINAMO wire advanced. 9:20:51 Wire advanced across lesion. 9:21:14 Versed 0.5 mg I.V. was administered by Arminda Raygoza RN; for sedation; Verbal order read back and verified. 9:21:34 Inflate balloon Inflation number: 1 A EUPHORA 2.5 x 15 Balloon ([id number]) was prepped and advanced across the Mid RCA 90, then inflated to 14 LIONEL for 0:10 (min:sec) 0. 9:22:49 Inflation number: 2 The EUPHORA 2.5 x 15 Balloon ([id number]) was reinflated across the Mid RCA 0, to 14 LIONEL for 0:20 (min:sec) . 9:23:17 Balloon removed over the wire. 9:23:18 Wire removed. 9:23:19 Guide catheter removed. 9:23:28 EXOSEAL 6Fr (EX600) opened to sterile field. 9:23:35 ACC Post-intervention CORDELIA Flow is 3. 9:23:59 Sheath removed intact; hemostasis achieved with Exoseal to the Right Femoral artery. 9:24:01 Procedure ended.(Physican Out) 9:24:17 Fluoroscopy time 05.30 minutes. :24:23 Fluoroscopy dose: 992 mGy 9:24:23 Flurop Dose total: 992 9:24:55 Dose Area Product 91112 mGy/cm. 9:25:11 Contrast amount:Isovue 300 97ml. 9:25:16 Maximum allowable dose exceeded? No. 9:25:17 Sharps counted by scrub and verified by R.N. 9:25:19 Insertion/operative site no bleeding no hematoma. 9:25:28 Post-op/insertion site Right Femoral artery dressed using a 4 x 4 and Tegaderm. 9:25:32 Post right femoral artery:stable 9:25:35 Post Procedure Pulses reassessed and unchanged 9:25:38 Post procedure rhythm: unchanged. 9:25:40 Estimated blood loss: 5 ml 9::42 Patient needs reinforcement of post procedure teaching. 9::42 Post procedure instruction explained to patient.Patient verbalizes understanding. 9:26:33 Plavix 600 mg P.O. was administered by Arminda Raygoza RN; for antiplatelet therapy; Verbal order read back and verified. 9:26:44 Procedure type changed to Cath procedure, Diagnostic procedure, LHC, Coronaries w/Grafts, Aortic Root Angiography, Sedation Charges, Moderate Sedation up to 30 minutes, PCI procedure, PTCA, PTCA Initial, Hemochron ACT Test 9:26:53 Procedure and supply charges have been captured, reviewed, submitted and are correct. 9:26:59 Procedure Complication : No complications 9:27:01 Vital chart was stopped 9:27:11 [facility] Findings: MVD- PCI performed (see procedure note) 9:27:13 See physician's report for complete and final results. 9:27:13 Operative report dictated upon procedure completion. 9:27:16 Report given to Pre/Post Procedure Room. 9:27:18 Patient transfered to Pre/Post Procedure Room with Stretcher. 9:27:20 Full Disclosure recording stopped 9:27:20 Procedure ended. 9:27:30 ACC-PCI Only Patient was given prescriptions, or instructed by Mendez Smith MD to start/continue the following medications upon discharge: Plavix 9:27:32 End room use (Document Last) 9:39:54 Femstop placed over the right femoral artery at 150 mmHg. Hemostasis achieved. 9:40:02 FEMSTOP Gold (L45512) opened to sterile field. 9:40:30 BMW 300cm [place] 2 J wire ([id number]) opened to sterile field. 9:41:06 EXOSEAL 5Fr (EX500) opened to sterile field. 12:57:25 late entry: ACT out of range. Intervention Summary Intervention Notes Time ActionType Lesion and Equipment Action# Pressure Duration Attributes Used 9:21:34 Inflate Mid RCA EUPHORA 1 14 00:10 balloon 2.5 x 15 Balloon ([id number]) 9:22:49 Reinflate Mid RCA EUPHORA 2 14 00:20 balloon 2.5 x 15 Balloon ([id number]) Device Usage Item Name Manufacture Quantity Catalog Hospital Part Current Minimal Lot# / Number Charge Number Stock Stock Serial# Code ACIST Acist 1 [id number] [id number] 135074 616359 20 Syringe Medical (35578) Systems Inc Bag Microtek 1 2001S 820976 22362 142690 5 Decanter Medical Inc. () Medline Medline 1 [id number] 810150 60800 715695 5 Cath Pack ([id number]) ACIST Hand Acist 1 69581 915908 475892 334866 5 Control Medical (18084) Systems Inc ACIST Acist 1 89308 988444 055213 485068 5 Manifold Medical (13370) Systems Inc DIAGNOSTIC Cardinal 1 UP4678 482851 19649 924771 30 Multipack Mbaobao 5Fr catheter set (SH5685) Tegaderm 4 3M 1 1626W 986925 145441 755179 5 x 4 (1626W) SHEATH 5FR Terumo 1 CJU381 428099 075843 248253 5 Felton (TZK227) EMERALD Cardinal 1 502-455 207914 449038 894121 5 Guide Wire Health (502-455) MULTIPACK Cardinal 1 567443 5 JL 4.0 5Fr Health catheter DIAGNOSTIC Cardinal 1 [id number] 279561 995160 820245 15 AR MOD 5Fr Health Catheter (373205S) MULTIPACK Cardinal 1 051765 5 Pigtail 5 Health Fr catheter SHEATH 6FR Terumo 1 MUG859 818029 454831 547407 40 Felton (DXY683) INFLATOR Merit 1 HO0377 896685 914194 717743 15 Public Mobile Medical BasixCompak (ZN0874) GUIDE 6FR Medtronic 1 [id number] 401929 20874 670744 1 JL 4.0 catheter (VH3XF87) TUBING High Merit 1 TZ7610V 169061 76172 146055 10 Pressure Medical Extension Tubing (Smith) (DH9327A) GUIDE 6FR Medtronic 1 GA4VE70 375368 16089 334693 1 JR 4.0 catheter (GE1CA70) Asahi Asahi Intecc 1 [id number] 798065 5387990 3648736 0 Minamo 190cm wire EUPHORA 2.5 Medtronic 1 [id number] 912462 166199 394409 5 [id number] x 15 Balloon ([id number]) EXOSEAL 6Fr Cardinal 1 EX600 004236 098566 480076 10 (EX600) Health FEMSTOP [place] 1 X35367 849327 881003 348741 5 Gold (M39921) BMW 300cm Aceves 1 [id number] 435139 152472 507810 5 [place] 2 Vascular J wire ([id number]) EXOSEAL 5Fr Cardinal 1 EX500 583569 434617 437181 10 (EX500) Health Signature Audit [place] Stage Time Signature Unsigned Intra-Procedure 05/06/2020 Nesha Garcia 9:40:30 AM RT(R) Intra-Procedure 05/06/2020 Arminda Raygoza, 9:41:06 AM RN Intra-Procedure 05/06/2020 Mendez Smith MD 9:41:35 AM 05/06/2020 11:00:08 AM Intra-Procedure 05/06/2020 Mendez Smith MD 11:02:29 AM 05/06/2020 12:57:03 PM Intra-Procedure 05/06/2020 Mendez Smith MD 12:57:45 PM [place] [address] [place] [address]
[2020-05-06] MEDS ORDERED: VITAMIN D2000 UNI1 PO (07:23)
[2020-05-06] MEDS ORDERED: TENORMIN25 MG PO (07:24)
[2020-05-06] MEDS ORDERED: CO Q-10100 MG PO (07:24)
[2020-05-06] MEDS ORDERED: COLESTID1 GM PO (07:25)
[2020-05-06] MEDS ORDERED: CYMBALTA60 MG PO (07:26)
[2020-05-06] MEDS ORDERED: ELIQUIS5 MG PO (07:26)
[2020-05-06] MEDS ORDERED: NASONEX NASAL S17 GM NS (07:27)
[2020-05-06] MEDS ORDERED: BETAPACE 80 MG80 MG PO (07:29)
[2020-05-06] MEDS ORDERED: MORPHINE SULFAT15 M4 PO (07:31)
[2020-05-06] MEDS ORDERED: TYLENOL W/CODEI1 TAB PO (07:31)
[2020-05-06 07:49] VITALS: BP 126/52; Ht 160 cm; Wt 70.5 kg
[2020-05-06 07:52] LABS: EOSINOPHILS 2.7 % (0-7); HEMATOCRIT 39.8 % (36.0-48.0); HEMOGLOBIN 13.5 g/dL (12-16); IMMATURE GRANULOCYTES 0.3 % (0-5); LYMPHOCYTES 30.8 % (15-50); MCH 31.5 pg (26.0-34.0); MCHC 33.9 g/dL (31.0-37.0); MCV 92.8 fL (80.0-100.0); MEAN PLATELET VOLUME 9.4 fL (7.4-10.4); MONOCYTES 13.2 % (2-11); PLATELET COUNT 236 10x3/uL (130-400); RBC 4.29 10x6/uL (4.00-5.40); RDW 13.9 % (11.5-14.5); WBC 6.7 10x3/uL (4.8-10.8)
[2020-05-06 08:36] LABS: ANION GAP 11.7 mmol/L (8-16); CALCIUM 9.6 mg/dL (8.5-10.1); CARBON DIOXIDE 27.9 mmol/L (21.0-32.0); CHOL - HDL RATIO 2.5 ratio (2.3-4.1); LDL-HDL RATIO 0.9 ratio (1.5-3.5); POTASSIUM - SERUM 4.6 mmol/L (3.5-5.1)
[2020-05-06] MEDS ORDERED: PLAVIX75 MG PO (09:39)
--- NOTE | 2020-05-06 09:46 | NUR ---
PT RECEIVED VIA STRETCHER FROM AUTOMOTIVE SPECIALTY TECHNICIAN FOR RECOVERY. PT AWAKE BUT DROWSY, DENIES PAIN OR DISCOMFORT. IV WAS PULLED OUT IN AUTOMOTIVE SPECIALTY TECHNICIAN WHEN PT WAS TRANSFERED FROM TABLE TO STRETCHER. PT PLACED ON CARDIAC MONITORS AND O2 VIA NC AT 2L. HR NSR RATE 68, BP 120/45, RR 10, SAT 92. R GROIN W FEMOSTOP DUE TO EXOCELE NOT HOLDING. PRESSURE AT 75. LEG PINK AND WARM, PEDAL PULSES PALPABLE BUT WEAK. PT INSTRUCTED TO KEEP HEAD ON PILLOW AND LEG STRAIGHT. CALL LIGHT IN REACH, SON AT BS.
--- NOTE | 2020-05-06 10:15 | NUR ---
PT RESTING, STATES SOME DISCOMFORT FROM FEMOSTOP. PRESSURE REMAINS AT 74, WILL REMOVE AFTER 1 HOUR PER PROTOCOL. LEG PINK AND WARM, PEDAL PULSES PALPABLE. VSS AT PRESENT. NO BLEEDING NOTED AT GROIN SITE. CALL LIGHT IN REACH, SON REMAINS AT BS
--- NOTE | 2020-05-06 11:05 | NUR ---
FEMOSTOP REMOVED, NO BLEEDING OR S/S HEMATOMA NOTED. 4X4 AND LG TEGADERM DRESSING APPLIED. REMINDED PT TO KEEP HEAD ON PILLOW AND LEG STRAIGHT. VSS, CALL LIGHT IN REACH
--- NOTE | 2020-05-06 11:35 | NUR ---
PT RESTING COMFORTABLY, DENIES PAIN OR NEEDS. R GROIN SOFT, NO S/S HEMATOMA OR BLEEDING. DRESSING CDI. VSS AT PRESENT, CALL LIGHT IN REACH
--- NOTE | 2020-05-06 12:01 | NUR ---
PT RESTING COMFORTABLY, DENIES PAIN OR NEEDS AT THIS TIME. R GROIN SOFT, DRESSING CDI NO S/S HEMATOMA. SON REMAINS AT BS, CALL LIGHT IN REACH
--- NOTE | 2020-05-06 12:30 | NUR ---
GROIN SOFT, NO S/S HEMATOMA DRESSING REMAINS CDI. HOB ELEVATED SLIGHTLY. SANDWICH AND DRINK SERVED. PT DENIES OTHER NEEDS AT THIS TIME. CALL LIGHT IN REACH. VSS
--- NOTE | 2020-05-06 13:05 | NUR ---
GROIN SOFT, NO S/S HEMATOMA. PT TOLERATED LUNCH W/O NAUSEA. PULSE OX MOVED TO TOE WASN'T PICKING UP WELL ON FINGERS. SAT 98 ON ROOM AIR. PT DENIES PAIN OR NEEDS.
--- NOTE | 2020-05-06 13:31 | NUR ---
DISCHARGE INSTRUCTIONS REVIEWED W SON AND PT, DISCUSSED IMPORTANCE OF GETTING PLAVIX FILLED AND STARTING THAT TOMORROW. THEY BOTH VERBALIZED UNDERSTANDING. MONITORS REMOVED AND PT UP TO DRESS FOR DISCHARGE. GROIN REMAINS FREE OF BLEEDING OR HEMATOMA.
--- NOTE | 2020-05-06 13:43 | NUR ---
PT TO BR VIA WC, VOIDING W/O DIFFICULITY. PT THEN DISCHARGED VIA WC TO SON WAITING IN PRIVATE VEHICLE. PT HAD ALL BELONGINGS AND DISCHARGE PAPERWORK.
== END 2020-05-06 13:30 | disposition home or self-care (01) ==
LOC: D.CATH 06:49
PROVIDERS: ATTEND Internal Medicine Cardiovascular Disease
DX: I20.9 Angina pectoris, unspecified (principal); R94.39 Abnormal result of other cardiovascular function study; R06.00 Dyspnea, unspecified; E78.5 Hyperlipidemia, unspecified; I10 Essential (primary) hypertension; I48.91 Unspecified atrial fibrillation; I25.119 Atherosclerotic heart disease of native coronary artery with unspecified angina pectoris; R42 Dizziness and giddiness; I73.9 Peripheral vascular disease, unspecified; Z95.4 Presence of other heart-valve replacement

== ENCOUNTER → 2021-01-08 08:09 | Outpatient (CLI) | payer MEDICARE, OTHER ==
[2020-05-06 07:49] VITALS: BMI 27.5
[~2021-01-08 08:09] MED LIST changes: +CO Q-10100 MG PO; +CYMBALTA60 MG PO; +ELIQUIS5 MG PO; +NASONEX NASAL S17 GM NS; +TENORMIN25 MG PO; +TYLENOL W/CODEI1 TAB PO; +VITAMIN D2000 UNI1 PO
== END | disposition home or self-care (01) ==
LOC: D.HCCECHO 08:09
PROVIDERS: ATTEND Internal Medicine Cardiovascular Disease
DX: I10 Essential (primary) hypertension (principal)